=== PATIENT | female | born 1990 | race Hispanic/Latino ===

== ENCOUNTER 2018-07-28 13:04 | Day surgery (SDC) | payer OTHER ==
--- NOTE | 2018-07-28 15:19 | PDOC.FPROB ---
FMR OB H&P: HPI - History of Present Illness Chief Complaint: elevated BP Indentification: History of Present Illness: 27 year old (hx of 2/2 rare liver disease) at 36 weeks and 4 days by last menstrual period and 25 week ultrasound from Clinic or pre-eclampsia workup. BPs in clinic were 170/92 and 150/70 on manual recheck. Patient is asymptomatic denying headache chest pain shortness of breath abdominal pain and visual disturbances. Reports good movement denies vaginal bleeding denies loss of fluid denies contractions. Patient does report increased yellow discharge since Wednesday. Patient also reports history of recent yeast infection a couple of weeks ago that was treated. Primary Care Physician: Dr. Mike Callejas FMR OB H&P: Current - Care : 4 Para: 3002 Gestational age: 36.4 w Dating Criteria: LMP and 25w US - OB Labs Blood type: O RH: positive Antibody Screen: negative HIV: negative RPR: negative HepBsAg: negative Rubella: immune Gonorrhea: negative Chlamydia: negative 1 hour gtt: 101 GBS: unknown FMR OB H&P: History - Past Medical History PMH: Hx of demise @ 1month of age 2/2 rare liver disease (unknown which disease) - Surgical History Sx History: none - Social History Social History: Denies T/A/D - Family History Family History: none FMR OB H&P: Medications - Current Home Medications: Medication Instructions Recorded Confirmed Type Mv-Mn/Iron/FA/Herbal/Digestive 1 tablet PO DAILY 01/18/13 04/13/15 History [ One Tablet] Vitamin 1 tab PO DAILY #30 tab 04/15/15 Rx Clotrimazole [Clotrimazole 1% 1 appful VAG HS #1 tube 07/28/18 Rx Vaginal Cream] Allergies/Adverse Reactions: Allergies Allergy/AdvReac Type Severity Reaction Status Date / Time No Known Allergies Allergy Verified 04/13/15 18:02 FMR OB H&P: ROS - Review of Systems General: denies: fever/chills, fatigue Eyes: denies: eye pain, vision changes, double vision, scotomas, floaters ENT: denies: nasal congestion, rhinorrhea Cardiovascular: denies: chest pain, palpitation, edema Respiratory: denies: cough, congestion, shortness of breath Gastrointestinal: denies: abdominal pain, cramping Genitourinary (Female): reports: vaginal discharge. denies: vaginal bleeding, vaginal mass/sore Musculoskeletal: denies: pain, stiffness Neurologic: denies: syncope, seizures Integumentary: denies: itching, rash Endocrine: denies: cold intolerance, heat intolerance Psychological: denies: depression, anxiety FMR OB H&P: Vital Signs - Maternal Vital signs: BP 108/59, HR 101, RR 12 - Heart Tones Baseline: 150 Variability: moderate Acceleration: present FMR OB H&P: Physical Exam - Physical Exam General: NAD, awake, alert and oriented HEENT: normocephalic and atraumatic, EOMI, MMM, grossly normal vision, grossly normal hearing Neck: supple, trachea midline Chest: non-tender to palpation Breast: symmetric Heart: RRR, normal S1/S2, no edema General: CTAB, no respiratory distress Abdomen: soft, gravid Musculoskeletal: pulses present, no atrophy Neurological: no tremor, no focal deficit Skin: no rash, good tugor Lymphatic: no purpura, no petechia Psychiatric: intact recent and remote memory, good judgement and insight - Pelvic Exam Vulva: normal hair distribution, no masses, no lesions, no blood, normal rugae Deviation from normal: thick white discharge at cervix FMR OB H&P: A/P - Problem List (1) Current Visit: Yes Status: Acute (2) Elevated blood pressure reading Current Visit: Yes Status: Acute Code(s): R03.0 - ELEVATED BLOOD-PRESSURE READING, W/O DIAGNOSIS OF HTN Discussion: Elevated Blood pressure in third trimester A- BPs normal in triage, regardless will do pre-e workup P- CBC, CMP, U protein and creatinine -monitor BPs -monitor FHT -will get GBS culture Vaginal discharge A- hx of yeast infection treated with monistat, pt has discharge since Wednesday P- VP3, GCC Addendum - Attending - Attending Attestation Date/Time: 07/28/18 1913 I personally evaluated the patient and discussed the management with Dr. Ramirez I agree with the History, Examination, Assessment and Plan documented above with any addition or exceptions noted below. BP all normal range here in hospital and pt asymptomatic. Labs negative (PLT 213, AST 32, Creat 0.66, Urine Pro/creat not calculable due to no protein) VP3 positive for BV and yeast. Will treat accordingly. Precautions reviewed Followup in PNC in 1 week
[2018-07-28 15:43] LABS: #Basophils 0.1 thou/uL (0.0-0.2); #Eosinphils 0.1 thou/uL (0.0-0.7); #Lymphocytes 1.9 thou/uL (1.20-3.40); #Monocytes 0.5 thou/uL (0.11-0.59); #Neutrophils 7.4 thou/uL (1.40-6.50); %Basophils 0.6 % (0.0-1.0); %Eosinophils 1.1 % (0.0-10.0); %Lymphocytes 18.7 % (21.0-51.0); %Monocytes 5.3 % (0.0-10.0); %Neutrophils 74.3 % (42.0-75.0); Hemoglobin 12.1 g/dL (12.0-16.0); Mean Corpuscular HGB CONC 34.6 g/dL (32.0-36.0); Mean Corpuscular Volume 92.4 fL (78.0-98.0); Platelet Count 213 thou/uL (130-400); RBC Distribution Width 12.5 % (11.5-14.5); Red Blood Cell (RBC) Count 3.77 mill/uL (4.20-5.40)
[2018-07-28 16:03] LABS: ALT (SGPT) 31 U/L (8-55); AST (SGOT) 32 U/L (5-34); Albumin 3.4 g/dL (3.5-5.0); Alkaline Phosphatase 137 U/L (40-150); Anion Gap 10 mmol/L (10-20); BUN (Urea Nitrogen) 6 mg/dL (7.0-18.7); Bilirubin, Total 0.5 mg/dL (0.2-1.2); Calc. Creatinine Clearance 0 mL/min (70-130); Calcium 9.4 mg/dL (7.8-10.44); Carbon Dioxide 22 mmol/L (22-29); Chloride 107 mmol/L (98-107); Estimated GFR-MDRD Greater than 90; Globulin 3.6 g/dL (2.4-3.5); Glucose 78 mg/dL (70-105); Potassium 3.7 mmol/L (3.5-5.1); Sodium 135 mmol/L (136-145)
[2018-07-28 16:04] LABS: Creatinine, Urine 67.52 mg/dL (47-110); Protein, Urine Random Quant Less than 10 mg/dL (1-14)
[2018-07-28 16:56] VITALS: BMI 39.4
== END 2018-07-28 16:30 | disposition home health service (06) ==
LOC: L&D/OP 13:04
PROVIDERS: ATTEND Family Medicine
DX: O99.89 Other specified diseases and conditions complicating pregnancy, childbirth and the puerperium (principal); R03.0 Elevated blood-pressure reading, without diagnosis of hypertension; N89.8 Other specified noninflammatory disorders of vagina; Z3A.36 36 weeks gestation of pregnancy
CPT/HCPCS: 36415; 80053; 82570; 84156; 85025; 87077; 87081; 87480; 87491; 87510; 87591; 87660; 99285

== ENCOUNTER 2018-08-15 19:00 | Day surgery (SDC) | payer OTHER ==
[2018-08-15 19:36] VITALS: BP 128/81; TEMP 98.2; BMI 39.1
--- NOTE | 2018-08-15 19:42 | PDOC.FPROB ---
FMR OB H&P: HPI - History of Present Illness Chief Complaint: elevated BP History of Present Illness: 27 yo by LMP/25 wk sono with hx of after delivery 2/2 rare liver disease presents from [facility] for elevated blood pressures in the 140s systolic. Reports +FM, no VB, VD, or LOF. Denies headache/vision changes, chest pain/palpitations, abdominal pain. Reports swelling on/off of hands and feet exacerbated by heat. Reports vaginal itching and dysuria. Primary Care Physician: Dr. 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 (unknown which type of disease) - Surgical History Sx History: none - Social History Social History: denies t/a/d - Family History Family History: reports DM in mother, HTN mother, no cardiac or cancer FMR OB H&P: Medications - Current Home Medications: Medication Instructions Recorded Confirmed Type Vitamin 1 tab PO DAILY #30 tab 04/15/15 08/15/18 Rx Metronidazole [metroNIDAZOLE] 500 mg PO Q12HR #14 tab 08/16/18 Rx Miconazole 2% Cream [Monistat 2% 1 applic VAG HS 7 Days #1 tube 08/16/18 Rx Cream] Allergies/Adverse Reactions: Allergies Allergy/AdvReac Type Severity Reaction Status Date / Time No Known Allergies Allergy Verified 04/13/15 18:02 FMR OB H&P: ROS - Review of Systems General: denies: fever/chills, weight/appetite/sleep changes Eyes: denies: eye pain, vision changes ENT: denies: nasal congestion, rhinorrhea, frequent nose bleed, sore throat Cardiovascular: reports: edema. denies: chest pain, palpitation Respiratory: denies: cough, congestion, shortness of breath Gastrointestinal: reports: cramping, nausea. denies: abdominal pain, vomiting, diarrhea, constipation, bright red blood, dark black tarry stools Genitourinary (Female): reports: dysuria, contractions. denies: hematuria, vaginal discharge, vaginal pain, vaginal bleeding, vaginal pressure Musculoskeletal: denies: pain, stiffness Neurologic: denies: numbness, weakness Integumentary: reports: rash (over face, allergic reaction), lesions (face) Psychological: denies: depression, anxiety FMR OB H&P: Vital Signs - Maternal Vital signs: Vital Signs - First Documented Temp Pulse Resp BP Pulse Ox 98.2 F 87 16 128/81 98 08/15/18 19:31 08/15/18 19:31 08/15/18 19:31 08/15/18 19:31 08/15/18 19:31 - Heart Tones Baseline: 120 Variability: moderate Acceleration: present Deceleration: absent [place] contractions every: none seen FMR OB H&P: Physical Exam - Physical Exam General: NAD, awake, alert and oriented HEENT: normocephalic and atraumatic, PERRLA, EOMI, MMM, grossly normal hearing, oropharynx clear Neck: supple, no LAD Heart: RRR, normal S1/S2, other (1/6 systolic murmur) General: CTAB, no respiratory distress, no wheezing Abdomen: soft, gravid, non-tender, bowel sound present Musculoskeletal: pulses present, FROM in all four extremities, no atrophy Skin: other (dry and erythematous face with papular eruptions) Lymphatic: no unusual bruising or bleeding, no purpura Psychiatric: intact recent and remote memory, good judgement and insight, normal mood and affect FMR OB H&P: A/P - Problem List (1) Vaginal janice Status: Acute Code(s): B37.3 - CANDIDIASIS OF VULVA AND VAGINA (2) Bacterial vaginosis Status: Acute Code(s): N76.0 - ACUTE VAGINITIS; B96.89 - OTH BACTERIAL AGENTS THE CAUSE OF DISEASES CLASSD ELSWHR (3) Elevated blood pressure reading Status: Acute Code(s): R03.0 - ELEVATED BLOOD-PRESSURE READING, W/O DIAGNOSIS OF HTN (4) Status: Acute Discussion: Gestational HTN/PreE work up -Blood pressures here have all been <140/90. -FHTs reactive -Pro/Cr: .19 -CMP/CBC wnl -Consider 24 hour urine protein -Follow up for routine PNC -Discussed labor precautions. Vaginal candidiasis -miconazole vaginally for 7 days Bacterial vaginosis -metronidazole 500 mg BID for 7 days UTI -reflexed UA to cx, patient will be called with results. Addendum - Attending - Attending Attestation Date/Time: 08/17/18 1240 I personally evaluated the patient and discussed the management with Dr. Contreras and team. I agree with the History, Examination, Assessment and Plan documented above with any addition or exceptions noted below.
[2018-08-15 20:36] LABS: #Basophils 0.1 thou/uL (0.0-0.2); #Eosinphils 0.1 thou/uL (0.0-0.7); #Lymphocytes 1.8 thou/uL (1.20-3.40); #Monocytes 0.5 thou/uL (0.11-0.59); %Basophils 0.9 % (0.0-1.0); %Eosinophils 0.5 % (0.0-10.0); %Lymphocytes 17.1 % (21.0-51.0); %Monocytes 5.2 % (0.0-10.0); %Neutrophils 76.3 % (42.0-75.0); Hemoglobin 12.1 g/dL (12.0-16.0); Mean Corpuscular HGB CONC 34.4 g/dL (32.0-36.0); Mean Corpuscular Hemoglobin 32.3 pg (27.0-31.0); Mean Platelet Volume 9.6 fL (7.4-10.4); Platelet Count 189 thou/uL (130-400); RBC Distribution Width 12.4 % (11.5-14.5); Red Blood Cell (RBC) Count 3.75 mill/uL (4.20-5.40); White Blood Cell (WBC) Count 10.5 thou/uL (4.8-10.8)
[2018-08-15 20:42] LABS: Creatinine, Urine 56.86 mg/dL (47-110)
[2018-08-15 21:10] LABS: AST (SGOT) 29 U/L (5-34); Bilirubin, Total 0.4 mg/dL (0.2-1.2); Calcium 9.9 mg/dL (7.8-10.44); Potassium 3.8 mmol/L (3.5-5.1); Sodium 135 mmol/L (136-145)
[2018-08-15 21:15] LABS: Bilirubin Negative (Negative); Blood, Urine Trace (Negative); Clarity CLOUDY (Clear); Glucose, Urine (Dipstick) Negative (Negative); Leukocyte Large (Negative); Nitrite Negative (Negative); Protein, Urine (Dipstick) Negative (Neg-Trace); Specific Gravity, Urine 1.013 (1.002-1.036); Urobilinogen 0.2 mg/dL (0.2-1.0)
[2018-08-15 21:16] LABS: Bacteria/HPF 2+ HPF (None Seen); Hyaline Casts/LPF 7-10 HYALINE CAST LPF (0-3 Hyaline); Pathc Cast-AUWi Flag 1.49 (0-2.49); RBC/HPF 0-3 HPF (0-3); Yeast-AUWi Flag 21.3 (0-25.0)
[2018-08-15 21:20] LABS: Urine Culture Reflex No No
[2018-08-15 21:39] LABS: Albumin 3.5 g/dL (3.5-5.0)
[2018-08-15 21:40] LABS: Chloride 106 mmol/L (98-107)
[2018-08-15 21:41] LABS: Glucose 72 mg/dL (70-105)
[2018-08-15 21:42] LABS: Globulin 3.6 g/dL (2.4-3.5); Protein, Total 7.1 g/dL (6.0-8.3)
[2018-08-15 21:43] LABS: Anion Gap 17 mmol/L (10-20); Carbon Dioxide 16 mmol/L (22-29)
[2018-08-15 21:44] LABS: Alkaline Phosphatase 161 U/L (40-150)
[2018-08-15 21:45] LABS: Calc. Creatinine Clearance 212 mL/min (70-130); Estimated GFR-MDRD Greater than 90
[2018-08-15 21:46] LABS: BUN (Urea Nitrogen) 7 mg/dL (7.0-18.7)
[2018-08-15 21:47] LABS: ALT (SGPT) 30 U/L (8-55)
[2018-08-15 23:03] LABS: Bilirubin Negative (Negative); Blood, Urine Small (Negative); Clarity CLEAR (Clear); Glucose, Urine (Dipstick) Negative (Negative); Leukocyte Negative (Negative); Nitrite Negative (Negative); Protein, Urine (Dipstick) Negative (Neg-Trace); Specific Gravity, Urine 1.014 (1.002-1.036); Urobilinogen 0.2 mg/dL (0.2-1.0)
[2018-08-15 23:06] LABS: Bacteria/HPF None Seen HPF (None Seen); Hyaline Casts/LPF 4-6 HYALINE CAST LPF (0-3 Hyaline); Pathc Cast-AUWi Flag 2.04 (0-2.49)
[2018-08-15 23:22] LABS: Squamous Epithelial 0-3 HPF (0-3); Transitional Epithelial 0-3 HPF (0-3)
[2018-08-15 23:24] LABS: Urine Culture Reflex Yes Yes
== END 2018-08-16 00:30 | disposition home or self-care (01) ==
LOC: L&D/OP 19:00
PROVIDERS: ATTEND Family Medicine
DX: O99.89 Other specified diseases and conditions complicating pregnancy, childbirth and the puerperium (principal); R03.0 Elevated blood-pressure reading, without diagnosis of hypertension; O99.613 Diseases of the digestive system complicating pregnancy, third trimester; K21.9 Gastro-esophageal reflux disease without esophagitis; O23.593 Infection of other part of genital tract in pregnancy, third trimester; B37.3 Candidiasis of vulva and vagina; Z3A.39 39 weeks gestation of pregnancy
CPT/HCPCS: 36415; 51701; 80053; 81001; 82570; 84156; 85025; 87086; 87480; 87510; 87660; 99285

== ENCOUNTER 2018-08-28 06:00 | Inpatient (IN) | payer MEDICAID, OTHER, SELFPAY ==
[2018-08-28] MEDS: Lactated Ringer's 1,000 ML IV SCH ×2 (08:00→16:19)
[2018-08-28 08:21] VITALS: BMI 39.4
[2018-08-28] MEDS ORDERED: Penicillin G Potassium 5 MILL.UNITS VIAL ONE (08:28)
[2018-08-28] MEDS ORDERED: NS w/ Oxytocin 10 units 500 ML ONE (08:29)
[2018-08-28] MEDS ORDERED: Sodium Chloride 0.9% 100 ML ONE (08:29)
[2018-08-28] MEDS ORDERED: Methylergonovine 0.2 MG/ML VIAL IM PRN (08:31)
[2018-08-28] MEDS ORDERED: NS / Oxytocin 40 units/1000ml 1,000 ML IV PRN (08:31)
[2018-08-28] MEDS ORDERED: Misoprostol 200 MCG TAB PR PRN (08:31)
[2018-08-28] MEDS ORDERED: Lidocaine 1% (PF) 30 ML VIAL SC PRN (08:31)
[2018-08-28] MEDS ORDERED: Ondansetron PF 4 MG/2 ML Vial IVP PRN ×2 (08:31→20:27)
[2018-08-28] MEDS ORDERED: Carboprost 250 MCG/ML AMP IM PRN (08:31)
[2018-08-28] MEDS ORDERED: Acetaminophen 500 MG TAB PO PRN (08:31)
[2018-08-28] MEDS ORDERED: Promethazine HCl 25 MG/ML VIAL IM PRN (08:31)
[2018-08-28] MEDS ORDERED: Penicillin G Potassium 5 MILL.UNITS in Sodium Chloride 0.9% 100 ML IVPB SCH (08:45)
--- NOTE | 2018-08-28 08:54 | PDOC.FPROB ---
FMR OB H&P: HPI - History of Present Illness Chief Complaint: IOL History of Present Illness: 27 yo @ 41.0 wks by LMP/25wk US presents to L&D for post date induction of labor. She denies contractions, LOF, VB, dysuria. Reports yellow vaginal discharge returned after completing treatment. Feels movement. Has not checked BP at home but notes it was normal at last clinic visit on the . Notes cervical dilation to 3 at that time. Primary Care Physician: SATYA Callejas FMR OB H&P: Current - Care : 4 Para: 3002 Gestational age: 41 Due date: 08/21/18 Dating Criteria: LMP/25 wk sono - OB Labs Blood type: O RH: positive Antibody Screen: negative HIV: negative RPR: negative HepBsAg: negative Rubella: immune Gonorrhea: negative Chlamydia: negative Pap Smear: ASCUS/HPV unk? 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: ASCUS/HPV unknown - Surgical History Sx History: None - Social History Social History: No tobacco, alcohol, drug use - Family History Family History: Mother- DM, HTN FMR OB H&P: Medications - Current Home Medications: Medication Instructions Recorded Confirmed Type Vitamin 1 tab PO DAILY #30 tab 04/15/15 08/28/18 Rx Zantac 1 capsule PO PRN PRN 08/28/18 08/28/18 History Allergies/Adverse Reactions: Allergies Allergy/AdvReac Type Severity Reaction Status Date / Time No Known Allergies Allergy Verified 08/28/18 07:47 FMR OB H&P: ROS - Review of Systems Eyes: denies: vision changes Cardiovascular: denies: chest pain, palpitation Respiratory: denies: shortness of breath Gastrointestinal: denies: abdominal pain, nausea, vomiting, diarrhea Genitourinary (Female): reports: vaginal discharge (yellow). denies: dysuria, vaginal bleeding, contractions Neurologic: denies: headache Integumentary: denies: rash FMR OB H&P: Vital Signs - Maternal Vital signs: Vital Signs - First Documented Temp Pulse Resp BP Pulse Ox 98.0 F 104 H 20 125/81 97 08/28/18 07:24 08/28/18 07:24 08/28/18 07:24 08/28/18 07:24 08/28/18 07:24 - Heart Tones Baseline: 140 Variability: moderate Acceleration: present Deceleration: absent Category: category 1 [place] contractions every: none FMR OB H&P: Physical Exam - Physical Exam General: NAD Heart: RRR, normal S1/S2, no edema General: CTAB, no respiratory distress Abdomen: soft, gravid, non-tender Skin: good tugor Lymphatic: no unusual bruising or bleeding Psychiatric: intact recent and remote memory FMR OB H&P: A/P - Problem List (1) Encounter for induction of labor Current Visit: Yes Status: Acute Code(s): Z34.90 - ENCNTR FOR SUPRVSN OF NORMAL , UNSP, UNSP TRIMESTER (2) GBS (group B Streptococcus carrier), +RV culture, currently Current Visit: Yes Status: Acute Code(s): O99.820 - STREPTOCOCCUS B CARRIER STATE COMPLICATING (3) GERD (gastroesophageal reflux disease) Current Visit: Yes Status: Acute Code(s): K21.9 - GASTRO-ESOPHAGEAL REFLUX DISEASE WITHOUT ESOPHAGITIS Discussion: Date/Time: 08/28/18 0852 IOL, post dates - /-2 @ 0900, will start pit for induction - FHT Cat 1 - desires OCP for contraception - does not desire epidural, stadol ordered GBS + - start PCN BV and candidiasis - completed course of vaginal miconazole and PO metronidazole ~5 days ago, but yellow discharge has returned GERD - controlled with ranitidine ASCUS/HPV unknown pap - plan for repeat pap/HPV Hx of demise - seen by MFM and all genetic testing records we have are negative Dispo: Start induction with pitocin. This H&P was discussed with Dr. Villatoro who agree with the above documentation and plan. Addendum - Attending - Attending Attestation Date/Time: 08/28/18 1226 I personally evaluated the patient and discussed the management with Dr. Yañez I agree with the History, Examination, Assessment and Plan documented above with any addition or exceptions noted below. 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
[2018-08-28] MEDS ORDERED: NS w/ Oxytocin 10 units 500 ML IV SCH (09:15)
[2018-08-28 09:16] LABS: Hemoglobin 12.3 g/dL (12.0-16.0); Mean Corpuscular HGB CONC 34.4 g/dL (32.0-36.0); Mean Corpuscular Hemoglobin 32.4 pg (27.0-31.0); Mean Platelet Volume 10.4 fL (7.4-10.4); Platelet Count 180 thou/uL (130-400); RBC Distribution Width 12.5 % (11.5-14.5); Red Blood Cell (RBC) Count 3.82 mill/uL (4.20-5.40)
[2018-08-28 09:57] LABS: HBSAg Index 0.35 S/CO (0-0.99); Hep B Surf Ag Non-Reactive S/CO (NonReactive); Syphilis Antibody Nonreactive (Nonreactive); Syphilis Antibody Index 0.05 S/CO (<1.00 Non-Reactive)
--- NOTE | 2018-08-28 11:17 | PDOC.LDPN ---
Labor & Delivery Progress Note - Subjective Subjective: comfortable, painful contractions - Objective Vital signs reviewed and normal: yes General: NAD, resting, breathing through contractions Dilation: 4 Effacement: 50% Station: -1 FHT: category 1 [place] contractions every: 3-4 - Assessment (1) Encounter for induction of labor Code(s): Z34.90 - ENCNTR FOR SUPRVSN OF NORMAL , UNSP, UNSP TRIMESTER Current Visit: Yes Status: Acute (2) GBS (group B Streptococcus carrier), +RV culture, currently Code(s): O99.820 - STREPTOCOCCUS B CARRIER STATE COMPLICATING Current Visit: Yes Status: Acute (3) Current Visit: No Status: Acute -: IOL, post dates 41.0 - 50/-2 @ 0900, will start pit for induction - /-1 @ 1100 - FHT Cat 1 - does not desire epidural, stadol ordered GBS + - start PCN, adequate at 1pm Hx of demise - seen by MFM and all genetic testing records we have are negative PP followup ASCUS/HPV unknown pap - plan for repeat pap/HPV - desires OCP for contraception
[2018-08-28] MEDS: Penicillin G 2.5 MILL.units 2.5 MILL.UNITS in Premix Bag 1 BAG IVPB SCH ×3 (12:30→19:11)
--- NOTE | 2018-08-28 13:57 | PDOC.LDPN ---
Labor & Delivery Progress Note - Subjective Subjective: comfortable - Objective General: NAD Dilation: 5 Effacement: 75% Station: -1 FHT: category 1 [place] contractions every: 2-3 AROM: clear fluid - Assessment (1) Encounter for induction of labor Code(s): Z34.90 - ENCNTR FOR SUPRVSN OF NORMAL , UNSP, UNSP TRIMESTER Current Visit: Yes Status: Acute (2) GBS (group B Streptococcus carrier), +RV culture, currently Code(s): O99.820 - STREPTOCOCCUS B CARRIER STATE COMPLICATING Current Visit: Yes Status: Acute (3) Current Visit: No Status: Acute -: 27 yo @ 41.0 wks by LMP/25wk US presents to L&D for post date induction of labor IOL, post dates - 50/-2 @ 0900, will start pit for induction - /-1 @ 1100 - /-1 @ 1400, AROM clear fluid - FHT Cat 1, accels present, moderate variablity, no decels - does not desire epidural, stadol PRN GBS + - PCN, adequate at 1pm Hx of demise - seen by MFM and all genetic testing records we have are negative PP followup ASCUS/HPV unknown pap - plan for repeat pap/HPV - desires OCP for contraception
[2018-08-28] MEDS: Butorphanol Tartrate 1 MG/ML VIAL SLOW IVP PRN ×3 (14:45→17:40)
--- NOTE | 2018-08-28 15:57 | PDOC.LDPN ---
Labor & Delivery Progress Note - Subjective Subjective: painful contractions - Objective Vital signs reviewed and normal: yes General: NAD Dilation: 7 Effacement: 90% Station: -1 FHT: category 2, variable decelerations, variability present [place] contractions every: q2 min Other exam findings: occassional variables, moderate variability AROM: clear fluid - Assessment (1) Encounter for induction of labor Code(s): Z34.90 - ENCNTR FOR SUPRVSN OF NORMAL , UNSP, UNSP TRIMESTER Current Visit: Yes Status: Acute (2) GBS (group B Streptococcus carrier), +RV culture, currently Code(s): O99.820 - STREPTOCOCCUS B CARRIER STATE COMPLICATING Current Visit: Yes Status: Acute (3) Current Visit: No Status: Acute -: 27 yo @ 41.0 wks by LMP/25wk US presents to L&D for post date induction of labor IOL, post dates - 50/-2 @ 0900, will start pit for induction - /-1 @ 1100 - /-1 @ 1400, AROM clear fluid - /-1 @ 1600 - FHT Cat 1, accels present, moderate variablity, no decels - does not desire epidural, stadol PRN GBS + - PCN, adequate at 1pm Hx of demise - seen by MFM and all genetic testing records we have are negative PP followup ASCUS/HPV unknown pap - plan for repeat pap/HPV - desires OCP for contraception
[2018-08-28] MEDS ORDERED: Carboprost 250 MCG/ML AMP ONE (18:45)
--- NOTE | 2018-08-28 19:05 | PDOC.OPDEL ---
OB Operative/Delivery Note - Additional Findings/Plan Compilations/Other Findings: Vaginal Delivery Procedure note Delivering Physicians: Dr. Gilberto Contreras, Dr Mike Callejas Attending: Dr. Mike Callejas Procedure: Spontaneous Vaginal Delivery Anesthesia: none QBL: 416 ml Pre-op Diagnosis: 1. Post-dates induction 41.0 wks Post-op Diagnosis: 1. same as above Indications: A 27 y/o female presented for post-dates induction Delivery Note: This is 27yo F @ 41.0wks who delivered a viable M at 1818 on 08/28/18. Following an uneventful intrapartum course, a vigorous male was delivered over an intact perineum in the L occipitoanterior position. Anterior Shoulder and then remainder of the body delivered. No nuchal cord. The head was held down and mouth and nares were bulb suctioned. Cord clamped and cut and cord blood collected. Placenta delivered spontaneously and intact Bailey presentation with a 3 vessel cord noted. Fundal massage was performed and the fundus was firm. The cervix and vagina were inspected and found to be free of lacerations. Infant went to nursery in good condition for routine care. Apgars were 8/9 at 1 & 5 minutes, respectively. Patient tolerated delivery well and went to after routine recovery/care.
[2018-08-28] MEDS ORDERED: NS / Oxytocin 40 units/1000ml 1,000 ML IV SCH (20:27)
[2018-08-28] MEDS ORDERED: Lanolin Ointment 7 GM TUBE TOP PRN (20:27)
[2018-08-28] MEDS ORDERED: Bisacodyl 10 MG SUPP PR PRN (20:27)
[2018-08-28] MEDS ORDERED: Milk Of Magnesia 30 ML UDCUP PO PRN (20:27)
[2018-08-28] MEDS: Ibuprofen 800 MG TAB PO SCH (20:48)
[2018-08-28] MEDS ORDERED: Acetaminophen 325 MG TAB PO SCH (21:00)
[2018-08-29] MEDS: Acetaminophen 325 MG TAB PO PRN ×3 (02:32→17:55)
[2018-08-29] MEDS: Docusate Calcium (SURFAK) 240 MG CAP PO SCH ×3 (02:46→20:11)
[2018-08-29] MEDS: Ibuprofen 800 MG TAB PO SCH ×3 (04:16→20:11)
[2018-08-29 05:18] LABS: Hemoglobin 10.8 g/dL (12.0-16.0); Mean Corpuscular Hemoglobin 31.1 pg (27.0-31.0); Mean Corpuscular Volume 94.2 fL (78.0-98.0); Mean Platelet Volume 9.9 fL (7.4-10.4); Platelet Count 168 thou/uL (130-400); RBC Distribution Width 12.5 % (11.5-14.5); Red Blood Cell (RBC) Count 3.49 mill/uL (4.20-5.40); White Blood Cell (WBC) Count 13.4 thou/uL (4.8-10.8)
--- NOTE | 2018-08-29 06:54 | PDOC.PP ---
Post Progress Note Post Day #: 1 Subjective: Patient recovering well. Says baby is not latching well and she isnt producing much milk. Reports minimal lochia. Urinating well, pain well controlled. Denies lightheadedness, dizziness. PO intake tolerated: yes Flatus: yes Ambulation: yes Vital Signs (12 hours) Temp Pulse Resp BP Pulse Ox 08/29/18 04:15 97.9 F 78 18 118/59 L 08/29/18 00:25 98.6 F 78 18 132/72 08/28/18 22:15 97.6 F 93 18 137/71 08/28/18 21:10 99.7 F H 84 18 125/59 L 98 08/28/18 20:27 98 Weight Weight 104.326 kg - Physical Examination General: NAD Cardiovascular: RRR Respiratory: clear to auscultation bilaterally, non-labored breathing Abdominal: + bowel sounds, no distention, appropriately TTP Fundus firm & at: umbilicus Neurological: no gross focal deficits Psychiatric: normal affect Result Diagrams: 08/29/18 04:58 Additional Labs: Post Labs Blood Type O POSITIVE 08/28/18 09:07 Hep Bs Antigen Non-Reactive S/CO (NonReactive) 08/28/18 09:05 (1) Encounter for induction of labor Code(s): Z34.90 - ENCNTR FOR SUPRVSN OF NORMAL , UNSP, UNSP TRIMESTER Status: Acute (2) GBS (group B Streptococcus carrier), +RV culture, currently Code(s): O99.820 - STREPTOCOCCUS B CARRIER STATE COMPLICATING Status : Acute (3) GERD (gastroesophageal reflux disease) Code(s): K21.9 - GASTRO-ESOPHAGEAL REFLUX DISEASE WITHOUT ESOPHAGITIS Status: Acute - Assessment/Plan Care - continue ibuprofen and tylenol - plans for OCP for contraception post - consulted - recovery well BV and candidiasis - completed course of vaginal miconazole and PO metronidazole ~5 days ago, but yellow discharge returned GERD - controlled with ranitidine ASCUS/HPV unknown pap - plan for repeat pap/HPV Hx of demise - seen by MFM and all genetic testing records we have are negative Dispo: Continue routine PP care. Plan for discharge tomorrow. Addendum - Attending - Attending Attestation Date/Time: 08/29/18 1113 I personally evaluated the patient and discussed the management with Dr. Yañez I agree with the History, Examination, Assessment and Plan documented above with any addition or exceptions noted below- Patient without complaints. Afebrile VSS. A/P: PPD#1 s/p - Continue routine care.
[2018-08-29] MEDS ORDERED: Adacel (T-DAP) 0.5 ML SYRINGE IM ONE (09:00)
[2018-08-29] MEDS: Ferrous Sulfate 325 MG TAB PO SCH ×2 (09:12→18:01)
[2018-08-29 20:55] LABS: Bilirubin Negative (Negative); Blood, Urine Large (Negative); Clarity CLOUDY (Clear); Glucose, Urine (Dipstick) Negative (Negative); Leukocyte Moderate (Negative); Nitrite Negative (Negative); Protein, Urine (Dipstick) 100 mg/dL (Neg-Trace); Specific Gravity, Urine 1.009 (1.002-1.036); Urobilinogen 0.2 mg/dL (0.2-1.0); pH, Urine 6.5 (5.0-9.0)
[2018-08-29 20:57] LABS: Bacteria/HPF None Seen HPF (None Seen); Hyaline Casts/LPF 4-6 HYALINE CAST LPF (0-3 Hyaline); Pathc Cast-AUWi Flag 1.48 (0-2.49)
[2018-08-29 20:58] LABS: Yeast-AUWi Flag 97.8 (0-25.0)
[2018-08-29 21:06] LABS: RBC/HPF GREATER THAN 50-TNTC HPF (0-3)
[2018-08-29 21:08] LABS: Urine Culture Reflex No No
[2018-08-30] MEDS: Ibuprofen 800 MG TAB PO SCH (04:09)
--- NOTE | 2018-08-30 07:00 | PDOC.PP ---
Post Progress Note Post Day #: 2 Subjective: Patient doing well with no complaints. Lochia has decreased. Has follow up at [facility] scheduled. PO intake tolerated: yes Flatus: yes Ambulation: yes Vital Signs (12 hours) Temp Pulse Resp BP Pulse Ox 08/29/18 20:10 98.3 F 89 18 130/68 98 Weight Weight 104.326 kg - Physical Examination General: NAD Cardiovascular: no m/r/g, RRR Respiratory: clear to auscultation bilaterally, non-labored breathing Abdominal: + bowel sounds, no distention, appropriately TTP Fundus firm & at: below umbilicus Neurological: no gross focal deficits Psychiatric: normal affect Result Diagrams: 08/29/18 04:58 Additional Labs: Post Labs Blood Type O POSITIVE 08/28/18 09:07 Hep Bs Antigen Non-Reactive S/CO (NonReactive) 08/28/18 09:05 (1) Encounter for induction of labor Code(s): Z34.90 - ENCNTR FOR SUPRVSN OF NORMAL , UNSP, UNSP TRIMESTER Status: Acute (2) GBS (group B Streptococcus carrier), +RV culture, currently Code(s): O99.820 - STREPTOCOCCUS B CARRIER STATE COMPLICATING Status : Acute (3) GERD (gastroesophageal reflux disease) Code(s): K21.9 - GASTRO-ESOPHAGEAL REFLUX DISEASE WITHOUT ESOPHAGITIS Status: Acute - Assessment/Plan Care - continue ibuprofen and tylenol - plans for OCP for contraception post - consulted, now bottle feeding - recovering well BV and candidiasis - completed course of vaginal miconazole and PO metronidazole ~5 days ago, but yellow discharge returned GERD - controlled with ranitidine ASCUS/HPV unknown pap - plan for repeat pap/HPV Hx of infant demise - seen by MFM and all genetic testing records we have are negative Dispo: Plan for discharge today. Addendum - Attending - Attending Attestation Date/Time: 08/30/18 1045 I personally evaluated the patient and discussed the management with Dr. Yañez I agree with the History, Examination, Assessment and Plan documented above with any addition or exceptions noted below- Patient without complaints. Ambulating/voiding. Afebrile VSS. A/P: 1) PPD #2 s/p - Plan to d/c home today. F/U in 2 weeks at [facility].
[2018-08-30 08:17] VITALS: BP 128/73; TEMP 98.2
[2018-08-30] MEDS: Docusate Calcium (SURFAK) 240 MG CAP PO SCH (08:35)
[2018-08-30] MEDS: Ferrous Sulfate 325 MG TAB PO SCH (08:35)
== END 2018-08-30 11:45 | disposition home or self-care (01) | DRG 807 ==
LOC: L&D 07:06 → 3SW 21:05
PROVIDERS: ADMIT Family Medicine; ATTEND Family Medicine
PROC: 10E0XZZ Delivery of Products of Conception, External Approach (ICD-10-PCS; principal; 2018-08-28)
PROC: 10907ZC Drainage of Amniotic Fluid, Therapeutic from Products of Conception, Via Natural or Artificial Opening (ICD-10-PCS; 2018-08-28)
PROC: 3E033VJ Introduction of Other Hormone into Peripheral Vein, Percutaneous Approach (ICD-10-PCS; 2018-08-28)
DX: O48.0 Post-term pregnancy (principal); Z37.0 Single live birth; O99.824 Streptococcus B carrier state complicating childbirth; O99.62 Diseases of the digestive system complicating childbirth; K21.9 Gastro-esophageal reflux disease without esophagitis; Z3A.41 41 weeks gestation of pregnancy
CPT/HCPCS: 36415; 81001; 85027; 86780; 86850; 86900; 86901; 87340; J0595; J2001; J2540; J2590; J3490

== ENCOUNTER 2020-12-11 13:17 | Emergency (ER) | payer OTHER, SELFPAY ==
[~2020-12-11 13:17] MED LIST: Iopamidol-370 76% 500 ML 1 ML ONE
[2020-12-11 13:51] LABS: #Eosinphils 0.1 thou/uL (0.0-0.7); #Lymphocytes 1.3 thou/uL (1.20-3.40); #Monocytes 0.7 thou/uL (0.11-0.59); #Neutrophils 8.1 thou/uL (1.40-6.50); %Basophils 0.5 % (0.0-1.0); %Eosinophils 0.6 % (0.0-10.0); %Lymphocytes 12.5 % (21.0-51.0); %Monocytes 6.4 % (0.0-10.0); Hemoglobin 13.9 g/dL (12.0-16.0); Mean Corpuscular HGB CONC 34.8 g/dL (32.0-36.0); Mean Corpuscular Hemoglobin 32.4 pg (27.0-31.0); Mean Corpuscular Volume 93.1 fL (78.0-98.0); Mean Platelet Volume 9.2 fL (7.4-10.4); Platelet Count 203 thou/uL (130-400); RBC Distribution Width 11.1 % (11.5-14.5); White Blood Cell (WBC) Count 10.1 thou/uL (4.8-10.8)
[2020-12-11 13:58] LABS: BHCG - Serum Negative (NEGATIVE); Pregs Control Background? CLEAR/WHITE (CLR/WHITE); Pregs Control Bar Appear? YES (CONTROL BAR)
[2020-12-11 14:19] LABS: ALT (SGPT) 19 U/L (8-55); AST (SGOT) 15 U/L (5-34); Albumin 4.1 g/dL (3.5-5.0); Alkaline Phosphatase 98 U/L (40-110); Anion Gap 13 mmol/L (10-20); BUN (Urea Nitrogen) 9 mg/dL (7.0-18.7); Bilirubin, Total 0.4 mg/dL (0.2-1.2); Calc. Creatinine Clearance 0 mL/min (70-130); Calcium 9.2 mg/dL (7.8-10.44); Carbon Dioxide 25 mmol/L (22-29); Chloride 106 mmol/L (98-107); Globulin 3.3 g/dL (2.4-3.5); Glucose 97 mg/dL (70-105); Lipase 31 U/L (8-78); Potassium 3.5 mmol/L (3.5-5.1); Protein, Total 7.4 g/dL (6.0-8.3); Sodium 140 mmol/L (136-145)
[2020-12-11 15:01] LABS: Bacteria/HPF None Seen HPF (None Seen); Bilirubin Negative (Negative); Blood, Urine Negative (Negative); Clarity Clear (Clear); Glucose, Urine (Dipstick) Normal (Negative); Ketone, Urine Negative (Negative); Leukocyte 25 Leu/uL (Negative); Nitrite Negative (Negative); Protein, Urine (Dipstick) Negative (Neg-Trace); RBC/HPF None Seen HPF (0-3); Specific Gravity, Urine 1.015 (1.002-1.036); Urobilinogen Normal mg/dL (Less than 2); pH, Urine 7.5 (5.0-9.0)
[2020-12-11] MEDS ORDERED: Ketorolac Tromethamine 30 MG/ML VIAL ONE (16:00)
== END 2020-12-11 17:35 | disposition home or self-care (01) ==
LOC: ERS 13:17
DX: N20.0 Calculus of kidney (principal); N39.0 Urinary tract infection, site not specified
CPT/HCPCS: 36415; 74177; 80053; 81003; 81015; 83690; 84703; 85025; 96374; J1885; Q9967

== ENCOUNTER 2022-03-02 13:00 | Outpatient (CLI) | payer OTHER | END 2022-03-02 13:01 | disposition home or self-care (01) | LOC: ULT 13:00 | PROVIDERS: ATTEND Nurse Practitioner Women's Health | DX: N83.202 Unspecified ovarian cyst, left side (principal) | CPT/HCPCS: 76856 ==